=== PATIENT | male | born 1995 | race Caucasian/White ===

== ENCOUNTER 2021-06-29 14:59 | Emergency (ER) | payer SELFPAY ==
[2021-06-29 15:02] VITALS: BP 168/94; PULSE 125; RESP 20; TEMP 36.8; O2SAT 99; BMI 38.0
[2021-06-29] MEDS: tetanus-dipt-pertussis 0.5 mL SDV IM (15:20)
--- NOTE | 2021-06-29 15:26 | PC.NURSE ---
PATIENT SPOKE WITH PHYSICIAN- NOT A TREAT TO SELF OR OTHERS AT THIS TIME
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
== END 2021-06-29 15:25 | disposition home or self-care (01) ==
LOC: ER 15:17
PROVIDERS: Emergency Provider Family Medicine
DX: S41.052A Open bite of left shoulder, initial encounter (principal); W50.3XXA Accidental bite by another person, initial encounter; F17.210 Nicotine dependence, cigarettes, uncomplicated; Z23 Encounter for immunization
CPT/HCPCS: 90471; 90715; 99282

== ENCOUNTER 2021-06-30 20:36 | Emergency (ER) | payer SELFPAY ==
[2021-06-30 20:44] VITALS: BP 157/104; PULSE 94; RESP 16; TEMP 36.8; O2SAT 98; BMI 35.2
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
[2021-06-30 21:48] LABS: Basophils % 0.4 %; Eosinophils # 0.1 10^3/uL (0.0-0.8); Eosinophils % 0.8 %; Hematocrit 43.7 % (42.0-52.0); Hemoglobin 14.8 g/dL (11.7-16.6); Lymphocytes # 1.9 10^3/uL (0.8-4.8); Mean Corpuscular HGB Conc 33.9 g/dL (30.0-36.0); Mean Corpuscular Hemoglobin 29.7 pg (28.0-34.0); Mean Corpuscular Volume 87.6 fl (80-94); Mean Platelet Volume 9.3 fL (7.4-10.4); Monocytes # 0.7 10^3/uL (0.2-0.9); Monocytes % 9.3 %; Neutrophils # 5.21 10^3/uL (1.8-7.7); Neutrophils % 65.4 %; Nucleated Red Blood Cells % 0 %; Platelet Count 307 10^3/cmm (130-400); Red Blood Count 4.99 10^6/uL (4.1-5.3); Red Cell Distribution Width 13.5 % (12.1-15.1)
[2021-06-30 22:15] LABS: Alanine Aminotransferase 43 U/L (0-41); Albumin Level 4.9 g/dL (3.5-5.2); Alkaline Phosphatase 104 IU/L (40-130); Anion Gap 19.5 (5-19); Aspartate Amino Transferase 35 U/L (0-40); Blood Urea Nitrogen 6 mg/dL (6-20); Calcium 9.7 mg/dL (8.5-10.5); Carbon Dioxide 21 mmol/L (22-29); Chloride 103 mmol/L (98-107); Globulin 2.9 g/dL (1.3-4.6); Glomerular Filtration Rate 161.6 mL/min (90-130); Glucose 115 mg/dL (65-115); Osmolality Calculated 289 mOsm/kg (285-295); Potassium 3.5 mmol/L (3.5-5.1); Salicylate 0.7 mg/dL (3-10); Sodium 140 mmol/L (136-145); Thyroid Stimulating Hormone 1.44 uIU/mL (0.27-4.20); Total Bilirubin 0.7 mg/dL (0.15-1.2); Total Protein 7.8 g/dL (6.6-8.7)
[2021-06-30 22:16] LABS: Acetaminophen < 5.0 ug/mL (10-30); Alcohol Level < 10 mg/dL (0-10)
[2021-06-30 22:41] LABS: Add Urine Microscopic? NO; Charge for UA Resulting for Rev
[2021-06-30 22:48] LABS: Urine Color Yellow (Yellow)
[2021-06-30 22:49] LABS: Bilirubin Urine 1+ (Negative); Blood Urine Neg (Negative); Glucose Urine UA Norm (Normal); Ketones Urine 1+ (Negative); Leukocyte Esterase Urine Negative (Negative); Nitrate Urine Negative (Negative); Protein Urine Neg (Negative); Urine Appearance Clear (CLEAR); Urobilinogen Urine 4 mg/dL (Negative); pH Urine 5 (5-7)
[2021-06-30 23:12] LABS: Amphetamines Screen Urine Negative (Negative); Barbiturates Screen Urine Negative (Negative); Benzodiazepines Screen Urine Negative (Negative); Cocaine Screen Urine Negative (Negative); Opiate Screen Urine Negative (Negative); PCP Screen Urine Negative (Negative); THC Screen Urine Positive (Negative)
--- NOTE | 2021-06-30 23:25 | PC.NURSE ---
IPAD taken into room for bedside facetime psych consult with dr. Jeong. patient in no obivous distress.
[2021-07-01] MEDS: LORazepam 2 mg/mL INJ 1 mL 1 MG IM (00:55)
--- NOTE | 2021-07-01 00:55 | PC.NURSE ---
upon being updated of discharge patient became agitated and sat up in bed and began twisted wrist in cuffs stating i cant do it any other way than this right now. if i can have a TV to take my mind off of things at the cell id bed ok . PRovider at bedside. patient in no obviosu distress. patients bilateral wrists cleansed using chlorhexidine and wrapped with telfa and kerlix. no bleeding from abrasion noted prior to wrapping . Guard at bedside.
== END 2021-07-01 02:06 ==
PROVIDERS: Emergency Medicine; Emergency Provider Emergency Medicine
DX: R45.851 Suicidal ideations (principal); F32.A Depression, unspecified; E86.0 Dehydration; S09.90XA Unspecified injury of head, initial encounter; X83.8XXA Intentional self-harm by other specified means, initial encounter; Y92.149 Unspecified place in prison as the place of occurrence of the external cause; F17.210 Nicotine dependence, cigarettes, uncomplicated
CPT/HCPCS: 36415; 70450; 80053; 80306; 80307; 81003; 84443; 85025; 96372; 99283; J2060

== ENCOUNTER 2021-07-01 09:51 | Emergency (ER) | payer SELFPAY ==
[2021-07-01 09:52] VITALS: BP 147/110; PULSE 88; RESP 19; TEMP 37; O2SAT 100; BMI 25.7
--- NOTE | 2021-07-01 10:06 | PC.NURSE ---
PATIENT IN PENITENTIARY ATTIRE AND RIO PENITENTIARY STAFF AT THE BEDSIDE
--- NOTE | 2021-07-01 10:21 | PC.NURSE ---
KEZIA- ROXANNE-DIRECTOR IN ED - WORKING ON RESOLUTION
--- NOTE | 2021-07-01 10:27 | W.ED.PSYCHS ---
HPI - Psych General: Chief Complaint: Psychiatric Symptoms Stated Complaint: MHE Time Seen by Provider: 07/01/21 09:54 History of Present Illness: 26-year-old male presents emergency room via law enforcement. Patient has been incarcerated he has been here twice in the last 36 hours. On his initial presentation he denied any suicidal homicidal ideation he was released. He was arrested after that and came in last night while in custody. Psychiatry was consulted he was hitting his head against a wall stating he intended to harm himself psychiatry felt that these attempts were to achieve a secondary gain and dismissed him to suicide watch while in custody. He continued to hit his head against the wall at the skilled nursing. He states he is doing it to try to harm himself so that he can be admitted here. He did have some blood when he arrives here. Last night a head CT was done and it was negative. There is no loss of consciousness he is not had any nausea or vomiting. Patient has a small laceration inside the hairline in the center of the forehead. MD complaint: suicidal ideation and feels depressed Onset (ago): minute(s) Duration: intermittent History of same: Yes Relieving factors: none Exacerbating factors: none Associated symptoms: Deny auditory hallucinations, visual hallucinations, delusions, depression, homicidal ideation or suicidal ideation Treatments prior to arrival: none Review of Systems Const: Denies: fever(s), chills, body aches, change in appetite, fatigue or malaise ENMT: Denies: throat pain, ear or mastoid pain, nasal discharge or nasal congestion Card: Denies: chest pain, edema, dyspnea on exertion or orthopnea Resp: Denies: dyspnea, productive cough or non-productive cough GI: Denies: abdominal pain, nausea, vomiting, hematemesis, coffee ground emesis, diarrhea, constipation, bloating, hematochezia or melena : Denies: flank pain, dysuria, urinary frequency or urinary urgency Skin/Breast: Denies: rash or pruritus Psych: Denies: depression, visual hallucinations, auditory hallucinations, suicidal ideation or homicidal ideation [facility] ED PFSH: Medical History No pertinent past medical history Surgical History No pertinent past surgical history Social History Smoking and tobacco status: current every day smoker cigarettes Packs smoked per day: 1 Second hand smoke exposure: No History of recent travel: No Current gender identity: Male Physical Exam Const: COMMON NORMALS: no acute distress GENERAL APPEARANCE: cooperative and comfortable ORIENTATION/CONSCIOUSNESS: Yes awake, Yes oriented to person, Yes oriented to place and Yes oriented to time HENMT: COMMON NORMALS: normocephalic, atraumatic and hearing grossly normal bilaterally HEAD & SCALP: normocephalic and atraumatic Neck/C-Spine: COMMON NORMALS: no JVD Resp: COMMON NORMALS: normal respiratory effort, No retractions, No use of accessory muscles and clear to auscultation bilaterally AUSCULTATION: clear to auscultation bilaterally Cardio: COMMON NORMALS: no JVD, regular rate, regular rhythm and No murmurs present (Cardio) RATE: regular rate RHYTHM: regular rhythm GI: COMMON NORMALS: Soft to palpation and No hepatosplenomegaly present AUSCULTATION: Yes normoactive bowel sounds PALPATION: Yes Soft to palpation, No Tenderness to palpation present (GI), No Guarding due to palpation present (GI) and Yes No hepatosplenomegaly present Extremity: COMMON NORMALS: normal to inspection, capillary refill normal, no clubbing, cyanosis or edema, no calf tenderness and no pedal edema Neuro: SENSORIUM/ORIENTATION: Yes oriented to person, Yes oriented to place and Yes oriented to time Psych: THOUGHT CONTENT: No delusions Skin: COMMON NORMALS: no rashes or lesions noted GENERAL SKIN EXAM: no rashes or lesions noted Procedures Laceration Laceration 1: Site: scalp Size (cm): 2 Description: linear Depth: simple, single layer Pre-repair: wound explored and irrigated extensively Skin layer closed with: other (2 daphne) Course Vital Signs: Vital signs: Vital Signs Temperature 98.6 F 07/01/21 09:52 Pulse Rate 88 07/01/21 09:52 Respiratory Rate 19 H 07/01/21 09:52 Blood Pressure 147/110 07/01/21 09:52 Pulse Oximetry 100 07/01/21 09:52 MDM - Psych Medical Decision Making Patient presents stating he is trying to get himself by beating his head against the wall. He was seen last night for the same thing he admits in the course of conversation he is doing this because he does not want to be in skilled nursing he feels that is a closed in space and he cannot handle it. After we stapled his head laceration he dug one of the daphne out in front of the educational adviser in attempt to try to pick the handcuff lock. I did not try to replace the staple. We offered to put topical antibiotic ointment on the wound he refused. Dr. Jeong was consulted see his consultation note he recommends discharge. Does not feel the patient has any acute psychiatric needs that would be amenable to treatment on an inpatient basis. Medical Records I reviewed the patient's medical records. Lab Data I reviewed the patient's lab results. Radiology Impressions Head CT 07/01/21 10:29 IMPRESSION: 1. No evidence of intracranial hemorrhage or mass effect. 2. Normal grady-white differentiation. 3. No acute intracranial findings. Discharge Plan Discharge Patient Disposition: Home Clinical Impression: Adjustment disorder Condition: Stable Prescriptions: No Action No Known Home Medications 0RF Discharge Orders: Discharge ED (Routine); Ordered 07/01/21 Ordered By: Mac Quevedo Patient Instructions: Opioid Safety Coding Level of Care Code ED Executive Vice President Business Development for Nitish Rodriguez
--- NOTE | 2021-07-01 10:29 | CT_ITS ---
WS: [id number] CT HEAD TECHNIQUE: Noncontrast CT of the head obtained from the skullbase to the vertex. CLINICAL INFORMATION: closed head injury COMPARISON: None. DLP: 1005.[address] scans at [facility] use at least one of these dose optimization techniques: automated e xposure control; mA and/or kV adjustment per patient size (includes targeted exams where dose is matc hed to clinical indication); or iterative reconstruction. FINDINGS: No evidence of intracranial hemorrhage or mass effect. Ventricular system and basal cisterns are green nt. No extra-axial fluid collections. No evidence of mass or mass effect. Normal grady-white different iation. Paranasal sinuses and mastoid air cells are well aerated. Skin daphne anterior frontal soft tissues. No visualized fractures. CT/CT head wo con* [id number] IMPRESSION: 1. No evidence of intracranial hemorrhage or mass effect. 2. Normal grady-white differentiation. 3. No acute intracranial findings.
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
== END 2021-07-01 12:12 | disposition home or self-care (01) ==
PROVIDERS: Emergency Provider Family Medicine
DX: F43.20 Adjustment disorder, unspecified (principal); S01.01XA Laceration without foreign body of scalp, initial encounter; X83.8XXA Intentional self-harm by other specified means, initial encounter; F17.210 Nicotine dependence, cigarettes, uncomplicated
CPT/HCPCS: 12001; 70450; 99283